=== PATIENT | male | born 1985 | race Caucasian/White ===

== ENCOUNTER 2021-03-13 17:56 | Emergency (ER) | payer BC, OTHER ==
--- NOTE | 2021-03-13 19:07 | EDM.PDOC ---
ED HPI GENERAL MEDICAL PROBLEM - General Chief Complaint: Respiratory Problem Stated Complaint: low 02 levels Time Seen by Provider: 03/13/21 18:46 Source of Information: Reports: Patient History Limitations: Reports: No Limitations - History of Present Illness INITIAL COMMENTS - FREE TEXT/NARRATIVE: Patient is a 35-year-old male who is complaining of having a productive cough producing a yellow to green-colored sputum which started last . Patient symptoms have been getting worse. 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 Patient is a cigarette smoker and has not been vaccinated for Covid. Patient was positive for Covid approximately a month ago but has been without symptoms starting 3 weeks ago. He denies any change in his sense of smell or taste. He has no body aches no fever no chills. He has not been nauseous or vomiting. He denies any diarrhea. He denies any dyspnea on exertion. Patient has a home pulse oximeter and was told by clinic who we saw last that if he is below 95 he should come to the emergency department. This is the main reason he is currently here. Patient was started on prednisone last . Duration: Day(s): (4) Location: Reports: Chest Quality: Reports: Pressure Severity: Moderate Improves with: Reports: None Worsens with: Reports: Breathing Associated Symptoms: Reports: Chest Pain, cough w sputum. Denies: Confusion, Fever/Chills, Headaches, Loss of Appetite, Nausea/Vomiting, Weakness - Related Data Allergies Allergy/AdvReac Type Severity Reaction Status Date / Time No Known Allergies Allergy Verified 03/13/21 18:12 Home Meds: Home Meds Azithromycin 250 mg PO DAILY #6 tablet 03/13/21 [Rx] predniSONE [Prednisone] 20 mg PO DAILY #5 tablet 03/13/21 [Rx] Past Medical History - Past Health History Medical/Surgical History: Denies Medical/Surgical History - Infectious Disease History Infectious Disease History: Reports: Novel Coronavirus Other Infectious Disease History: February 2021 Social & Family History - Tobacco Use Tobacco Use Status *Q: Current Every Day Tobacco User Years of Tobacco use: 15 Packs/Tins Daily: 1 - Recreational Drug Use Recreational Drug Use: No ED ROS GENERAL - Review of Systems Review Of Systems: Comprehensive ROS is negative, except as noted in HPI. Constitutional: Reports: No Symptoms HEENT: Reports: No Symptoms Respiratory: Reports: Wheezing, Cough Cardiovascular: Reports: Chest Pain GI/Abdominal: Reports: No Symptoms : Reports: No Symptoms ED EXAM, GENERAL - Physical Exam Exam: See Below Exam Limited By: No Limitations General Appearance: Alert, No Apparent Distress Head: Normocephalic Neck: Normal Inspection, Supple Respiratory/Chest: No Respiratory Distress, Lungs Clear, Other (Upper airway wheezing with expiration.) Cardiovascular: Regular Rate, Rhythm, No JVD GI/Abdominal: Normal Bowel Sounds, Soft Back Exam: Normal Inspection Extremities: Normal Inspection, No Pedal Edema Neurological: Alert Psychiatric: Normal Affect Skin Exam: Warm, Dry Course - Vital Signs Text/Narrative:: Patient is given some Regeneron. X-ray shows no pneumonia. His O2 sats have for the most part been above 95. I am giving him a prescription for some Zithromax Dosepak and prednisone. He has agreed to quit smoking cigarettes. Will return to ER if his symptoms are worse or if he is having his home pulse oximeter readin gs below 90. Last Recorded V/S: Last Vital Signs Temp 98.9 F 03/13/21 18:08 Pulse 66 03/13/21 22:00 Resp 16 03/13/21 22:00 BP 112/77 03/13/21 22:00 Pulse Ox 95 03/13/21 22:00 - Orders/Labs/Meds Orders: Active Orders 24 hr Category Date Time Status Vital Signs [RC] Q15M Care 03/13/21 19:15 Active CXR [Chest 1V Frontal] [CR] Stat Exams 03/13/21 19:17 Taken Azithromycin [Zithromax] Med 03/13/21 19:30 Active 500 mg PO DAILY EPINEPHrine [Adrenalin] Med 03/13/21 19:15 Active 0.3 mg IM ASDIRECTED PRN Famotidine [Pepcid] Med 03/13/21 19:15 Active 20 mg IVPUSH ASDIRECTED PRN Sodium Chloride 0.9% [Saline Flush] Med 03/13/21 19:15 Active 30 ml FLUSH ASDIRECTED diphenhydrAMINE [Benadryl] Med 03/13/21 19:15 Active 50 mg IVPUSH ASDIRECTED PRN methylPREDNISolone Sod Succ [Solu-MEDROL] Med 03/13/21 19:15 Active 125 mg IVPUSH ASDIRECTED PRN Medication Orders Azithromycin (Azithromycin 250 Mg Tab) 500 mg PO DAILY ALEXANDRA Last Admin: 03/13/21 20:36 Dose: 500 mg Documented by: DOREEN Diphenhydramine HCl (Diphenhydramine 50 Mg/Ml Sdv) 50 mg IVPUSH ASDIRECTED PRN PRN Reason: hypersensitivity reaction Epinephrine HCl (Epinephrine 1 Mg/Ml Sdv) 0.3 mg IM ASDIRECTED PRN PRN Reason: hypersensitivity reaction Famotidine (Famotidine 20 Mg/2 Ml Sdv) 20 mg IVPUSH ASDIRECTED PRN PRN Reason: hypersensitivity reaction Methylprednisolone Sodium Succinate (Methylprednisolone Sodium Succinate 125 Mg/2 Ml Sdv) 125 mg IVPUSH ASDIRECTED PRN PRN Reason: hypersensitivity reaction Sodium Chloride (Sodium Chloride 0.9% 10 Ml Syringe) 30 ml FLUSH ASDIRECTED ALEXANDRA Meds: Medications Generic Name Dose Route Start Last Admin Trade Name Freq PRN Reason Stop Dose Admin Azithromycin 500 mg 03/13/21 19:30 03/13/21 20:36 Azithromycin 250 Mg Tab PO 500 mg DAILY ALEXANDRA Administration Diphenhydramine HCl 50 mg 03/13/21 19:15 Diphenhydramine 50 Mg/Ml Sdv IVPUSH ASDIRECTED PRN hypersensitivity reaction Epinephrine HCl 0.3 mg 03/13/21 19:15 Epinephrine 1 Mg/Ml Sdv IM ASDIRECTED PRN hypersensitivity reaction Famotidine 20 mg 03/13/21 19:15 Famotidine 20 Mg/2 Ml Sdv IVPUSH ASDIRECTED PRN hypersensitivity reaction Methylprednisolone Sodium Succinate 125 mg 03/13/21 19:15 Methylprednisolone Sodium Succinate 125 Mg/2 Ml Sdv IVPUSH ASDIRECTED PRN hypersensitivity reaction Sodium Chloride 30 ml 03/13/21 19:15 Sodium Chloride 0.9% 10 Ml Syringe FLUSH ASDIRECTED ALEXANDRA Discontinued Medications Generic Name Dose Route Start Last Admin Trade Name Freq PRN Reason Stop Dose Admin CASIRIVIMAB/IMDEVIMAB 10 ml/ 110 mls @ 220 mls/hr 03/13/21 19:15 03/13/21 20:35 Sodium Chloride IV 03/13/21 19:44 220 mls/hr ONETIME ONE Administration Prednisone 40 mg 03/13/21 19:15 03/13/21 20:41 Prednisone 20 Mg Tab PO 03/13/21 19:16 40 mg ONETIME ONE Administration Departure - Departure Time of Disposition: 22:21 Disposition: Home, Self-Care 01 Condition: Good Clinical Impression: Acute bronchitis - Discharge Information Instructions: Acute Bronchitis, Adult, [id number] Referrals: Jodi Aponte PA-C [Primary Care Provider] - Forms: ED Department Discharge Additional Instructions: Quit smoking cigarettes. Return to ER symptoms are worse. Follow-up with PCP if symptoms continue. Prednisone and Zithromax as prescribed. Please get vaccinated for Covid. Sepsis Event Note (ED) - Evaluation Sepsis Screening Result: No Definite Risk - Focused Exam Vital Signs: Vital Signs Temp Pulse Resp BP Pulse Ox 03/13/21 22:00 66 16 112/77 95 03/13/21 18:08 98.9 F 105 H 18 140/91 H 93 L - My Orders Last 24 Hours: My Active Orders 03/13/21 19:15 Vital Signs [RC] Q15M EPINEPHrine [Adrenalin] 0.3 mg IM ASDIRECTED PRN Famotidine [Pepcid] 20 mg IVPUSH ASDIRECTED PRN Sodium Chloride 0.9% [Saline Flush] 30 ml FLUSH ASDIRECTED diphenhydrAMINE [Benadryl] 50 mg IVPUSH ASDIRECTED PRN methylPREDNISolone Sod Succ [Solu-MEDROL] 125 mg IVPUSH ASDIRECTED PRN 03/13/21 19:17 CXR [Chest 1V Frontal] [CR] Stat 03/13/21 19:30 Azithromycin [Zithromax] 500 mg PO DAILY - Assessment/Plan Last 24 Hours: My Active Orders 03/13/21 19:15 Vital Signs [RC] Q15M EPINEPHrine [Adrenalin] 0.3 mg IM ASDIRECTED PRN Famotidine [Pepcid] 20 mg IVPUSH ASDIRECTED PRN Sodium Chloride 0.9% [Saline Flush] 30 ml FLUSH ASDIRECTED diphenhydrAMINE [Benadryl] 50 mg IVPUSH ASDIRECTED PRN methylPREDNISolone Sod Succ [Solu-MEDROL] 125 mg IVPUSH ASDIRECTED PRN 03/13/21 19:17 CXR [Chest 1V Frontal] [CR] Stat 03/13/21 19:30 Azithromycin [Zithromax] 500 mg PO DAILY
[2021-03-13] MEDS ORDERED: EPINEPHrine 1 MG/ML SDV IM PRN (19:15)
[2021-03-13] MEDS ORDERED: methylPREDNISolone Sodium Succinate 125 MG/2 ML SDV IVPUSH PRN (19:15)
[2021-03-13] MEDS ORDERED: Famotidine 20 MG/2 ML SDV IVPUSH PRN (19:15)
[2021-03-13] MEDS ORDERED: Sodium Chloride 0.9% 10 ML Syringe FLUSH SCH (19:15)
[2021-03-13] MEDS ORDERED: diphenhydrAMINE 50 MG/ML SDV IVPUSH PRN (19:15)
[2021-03-13] MEDS ORDERED: predniSONE 20 MG Tab PO ONE (19:15)
[2021-03-13] MEDS ORDERED: Azithromycin 250 MG Tab PO SCH (19:30)
--- NOTE | 2021-03-14 06:44 | CR ---
Chest: Frontal view of the chest was obtained. Comparison: No prior chest imaging is available. Heart size and mediastinum are normal. Lungs are clear with no acute parenchymal change. Bony structures show nothing acute. Impression: 1. Nothing acute is seen on frontal chest x-ray. Diagnostic code #1
== END 2021-03-13 22:36 | disposition home or self-care (01) ==
LOC: JD.ED 17:56
DX: J20.9 Acute bronchitis, unspecified (principal); F17.210 Nicotine dependence, cigarettes, uncomplicated; Z86.16 Personal history of COVID-19
CPT/HCPCS: 71045; 99284; A9270; J7512; M0243; Q0243